=== PATIENT | female | born 1985 | race Caucasian/White ===

== ENCOUNTER 2020-04-16 10:27 | Emergency (ER) | payer OTHER ==
[~2020-04-16] VITALS: Ht 162.6 cm; Wt 88.5 kg
[2020-04-16] MEDS ORDERED: WELLBUTRIN SR150 MG PO (11:17)
[2020-04-16] MEDS ORDERED: SPRINTEC1 EACH PO (11:18)
[2020-04-16] MEDS ORDERED: LORAZEPAM 1 MG T1 MG PO (11:19)
[2020-04-16] MEDS ORDERED: NORCO 10-325 T1 EACH PO (11:20)
[2020-04-16] MEDS ORDERED: PROZAC10 M1 PO (11:20)
[2020-04-16] MEDS ORDERED: PREDNISONE 5 MG5 M1 PO (11:20)
[2020-04-16] MEDS ORDERED: PREDNISONE 10 M10 MG PO (12:27)
[2020-04-16] MEDS ORDERED: NORFLEX100 MG PO ×2 (12:27→12:33)
[2020-04-16 12:49] VITALS: BP 133/96
== END 2020-04-16 12:49 | disposition home or self-care (01) ==
LOC: ER 10:27
DX: M54.42 Lumbago with sciatica, left side (principal); F17.210 Nicotine dependence, cigarettes, uncomplicated; Z79.899 Other long term (current) drug therapy

== ENCOUNTER → 2020-05-30 | Outpatient (CLI) | payer OTHER ==
[~2020-05-30] VITALS: Ht 162.6 cm; Wt 88.5 kg
[~2020-05-30] MED LIST: ATIVAN1 M1 PO; LORAZEPAM 1 MG T1 MG PO; NEURONTIN300 MG PO; NORCO 10-325 T1 EACH PO; NORFLEX100 MG PO; PREDNISONE 10 M10 MG PO; PREDNISONE 5 MG5 M1 PO; PROZAC10 M1 PO; SPRINTEC1 EACH PO; WELLBUTRIN SR150 MG PO
[2020-05-30 13:21] VITALS: BP 115/79
--- NOTE | 2020-05-30 14:34 | NUR ---
Pain Clinic Assessment: 1. History of Osteoarthritis: Not Applicable History of Rheumatoid Arthritis: Not Applicable 2. Height: 5 ft. 4 in. 162.6 cm. Weight: 195.0 lb. oz. 88.452 kg. Patient's BMI: 33.5 3. Vital Signs: BP: 115/79 Pulse: 94 Resp: 16 Temp: 02 Sat: 97 ECG Mon: 4. Pain Intensity: 7 5. Fall Risk: Dizziness: N Needs help standing or walking: N Fallen in the last 3 months: N Fall risk comments: 6. Patient on Blood Thinner: None 7. History of Hypertension: N 8. Opioid Therapy greater than 6 weeks: Y Opiate Contract Signed: 9. Risk Assessment Tool Provided: 2-MOD 10. Functional Assessment Tool: 60/70 11. Recreational Drug Use: Never Drug Type: Tobacco Use: Never Smoker Tobacco Type: Amount or Packs/day: How Many Years: Alcohol Use: Yes Frequency: Weekly Quant: 2
--- NOTE | 2020-05-31 14:21 | HPC ---
[facility] [place] [address] PAIN MANAGEMENT CONSULTATION Name: MARY CONNER Room #: REG Eduard Arjun#: [id number] Admission: 05/30/20 Attend Phys: Xu Lyn DO Discharge: Date of : 89 Report #: [id number] THIS REPORT FOR: cc: FAM - Family physician unknown FAM - Family physician unknown Xu Lyn DO ~ DATE OF SERVICE: 05/30/2020 REFERRING PHYSICIAN: Moshe Garcia MD CHIEF COMPLAINT: Low back pain, left lower extremity pain with paresthesias. HISTORY OF PRESENT ILLNESS: As you know, the patient is a very pleasant 34-year-old female who reports acute onset of low back pain, left lower extremity pain and paresthesias that began 03/20/2020. The patient reports she has had a history of low back pain in the past due to some mild facet arthropathy. She has undergone epidural injections under fluoroscopic guidance with another pain physician with no efficacy. The patient states that she has been able to "just deal with her symptoms" over the past couple of years since that injection series. She states she was in her normal state of health in February when she began to experience low back pain, left lower extremity pain that radiates all the way to the foot. She has trialled conservative treatment options. This was ineffective at controlling symptoms. She was subsequently then seen by Neurosurgery, Dr. Moshe Garcia and advised to trial epidural injections under fluoroscopic guidance for initial treatment. There were changes noted at the L5-S1 level consistent with her symptoms and surgical options were discussed, though at that time imaging had not been completed. She was referred to our clinic to discuss treatment options for lumbar radiculopathy. The patient reports that she also had to be seen in the Emergency Department on 04/16/2020 due to increasing left low back pain, left lower extremity pain. She was diagnosed with "sciatica." She was given medication treatment and sent home. She has been referred to our clinic to discuss epidural injections under fluoroscopic guidance to address lumbar radiculopathy. The patient indicates today pain is continuous and constant. She describes the pain as burning, aching, gnawing, throbbing, sharp, stabbing, numbness and tingling. Places current pain score 7/10, daily average of 6-7/10, worst pain has been as 9/10. The patient states that sitting and standing for any prolonged period of time exacerbates symptoms, ice packs and pain medications tend to improve pain. She has been referred to our service to discuss treatment options for lumbar radiculopathy. PAST MEDICAL HISTORY: 1. [place] [address] PAIN MANAGEMENT CONSULTATION Name: MARY CONNER Room #: REG TRENT Díaz#: [id number] Admission: 05/30/20 Attend Phys: Xu Lyn DO Discharge: Date of : 89 Report #: [id number] 2. Sleep disturbance. 3. Anxiety disorder. 4. Migraines. 5. Depression. PAST SURGICAL HISTORY: section. SOCIAL HISTORY: The patient is a reformed smoker. Denies IV or illicit drug use. Admits to occasional alcohol beverage. She is currently employed as a humanities teacher. She is working, not receiving workmen's compensation nor is she trying to obtain discrete benefits. She is not in litigation in regards to her pain. She is unaccompanied at today's visit. REVIEW OF SYSTEMS: Positive for weight gain, depression, anxiety, insomnia, migraine headaches, chronic low back pain, new onset lumbar radiculopathy. All other review of systems negative per 12-point review of systems other than those listed in history of present illness. Pain impact score 60/70 indicating near complete interference of daily activities secondary to pain. ALLERGIES: No reported drug allergies. CURRENT MEDICATIONS: Sprintec 1 tab per day, gabapentin 300 mg p.o. at bedtime, hydrocodone/acetaminophen 10/325 one tab every 4 hours p.r.n. for pain, Prozac 10 mg once a day, lorazepam 1 mg p.o. at bedtime, bupropion 150 mg once a day. IMAGING: MRI of the lumbar spine obtained 05/18/2020 shows L1-L2 unremarkable, L2-L3 unremarkable, L3-L4 unremarkable, L4-L5 unremarkable. L5-S1, there is a lateral recess stenosis secondary to a posterior disk protrusion eccentric to the left. There is mild bilateral neural foraminal stenosis. PHYSICAL EXAMINATION: VITAL SIGNS: Blood pressure 115/79, pulse 94, respiratory rate 16 and unlabored. The patient is 97% on room air. Height 5 feet 4 inches tall, weight 195 pounds, BMI calculated 33.5. GENERAL: Well-developed, well-nourished, well-hydrated exogenously obese 34-year-old female appearing stated age, pain is rated today at 7/10. HEENT: Normocephalic, atraumatic. Pupils equal, round and reactive. NEUROLOGIC: Speech fluent. The patient deemed a good historian. LUNGS: Clear, no wheeze, rhonchi or rales. CARDIOVASCULAR: Regular. No appreciable gallop, no rub. ABDOMEN: Soft, mildly obese, normoactive bowel sounds. EXTREMITIES: Show no clubbing, no cyanosis, no edema. MUSCULOSKELETAL: Lower extremity strength appears equal and symmetrical 5/5. Muscle bulk and tone equal and symmetrical in comparing left lower extremity to [facility] [address] [place] [address] PAIN MANAGEMENT CONSULTATION Name: MARY CONNER Room #: REG TRENT Farmer.#: [id number] Admission: 05/30/20 Attend Phys: Xu Lyn DO Discharge: Date of : 89 Report #: [id number] right. Seated straight leg raising positive left. Supine straight leg raising positive left. Rick's test is negative. Modified Gaenslen's positive for axial low back pain. Ankle clonus negative. Babinski is negative. Gait appears mildly antalgic favoring left lower extremity over right. Ankle clonus negative. Babinski is negative. Lumbar provocation testing is met with slight increase in pain secondary to mild arthritic changes. ASSESSMENT: 1. Symptomatic lumbar radiculopathy. 2. Lateral recess stenosis. 3. Displacement of lumbar intervertebral disk with radiculopathy. 4. Lumbar facet arthropathy. 5. Chronic intractable pain. PLAN: 1. The patient has been referred to our service by her neurosurgeon for evaluation for lumbar radiculopathy. Based on today's physical exam and the history she provides, the description she uses in regards to pain as well as the distribution of symptoms, it would appear she is suffering from lumbar radiculopathy secondary to the findings noted in her MRI. As you are aware, MRI showed changes at the L5-S1 level with lateral recess stenosis, which does correlate to the patient's symptoms. She also has some mild arthritic changes noted in the lumbar spine, the likely source of her axial back pain for the past couple of years. We discussed with the patient the treatment options for lumbar radiculopathy to address new onset of low back and left lower extremity symptoms. The following was discussed with the patient today. We discussed physical therapy, stretching exercises, core strengthening and a concerted effort at weight loss. We discussed medication management, adding neuropathic pain medications such as amitriptyline, nortriptyline, Cymbalta, Lyrica or gabapentin. We would also recommend addition of a nonsteroidal anti-inflammatory with that therapy. We discussed the epidural injections for which the patient was referred to our clinic. We also discussed spinal cord stimulator and ultimately surgical options. After reviewing the risks and benefits of all the proposed treatment options, the patient chose to begin with a lumbar epidural injection under fluoroscopic guidance. 2. The patient was advised we will need to obtain authorization before she could undergo a lumbar epidural injection. We will begin this authorization process immediately. We are hopeful we can provide the epidural injection to the patient tomorrow. We will be working on that authorization today and will have a tentative appointment for the patient on 05/31/2020 at 12:30 to undergo the procedure. 3. No medication changes made at today's visit. We recommend the patient to continue current medical therapy as previously prescribed. 4. We will see the patient back in followup visit once we have achieved authorization to undergo the first in a series of requested lumbar epidural [address] [address] PAIN MANAGEMENT CONSULTATION Name: MARY CONNER Room #: REG CLEduard Díaz#: [id number] Admission: 05/30/20 Attend Phys: Xu Lyn DO Discharge: Date of : 89 Report #: [id number] injections. 5. We wish to thank Dr. Moshe Garcia for the referral of this patient to our clinic. We will keep you apprised of response to treatment as we address her lumbar radicular symptoms involving the low back and left lower extremity secondary to the findings at the L5-S1 level. Again, we wish to thank you for the opportunity to see this patient in consultation. <ELECTRONICALLY SIGNED> By: Xu Lyn DO 05/31/20 1421 0921 [id number] Xu Lyn DO /nt
== END ==
LOC: PAIN 06:54
PROVIDERS: ATTEND Anesthesiology Pain Medicine
DX: M51.16 Intervertebral disc disorders with radiculopathy, lumbar region (principal); M79.604 Pain in right leg; M79.605 Pain in left leg; R20.2 Paresthesia of skin; M47.26 Other spondylosis with radiculopathy, lumbar region; G89.29 Other chronic pain; M48.07 Spinal stenosis, lumbosacral region; F41.8 Other specified anxiety disorders; Z79.899 Other long term (current) drug therapy

== ENCOUNTER → 2020-05-31 | Outpatient (CLI) | payer OTHER ==
[~2020-05-31] VITALS: Ht 167.6 cm; Wt 89.2 kg
--- NOTE | ~2020-05-31 | HPC ---
[facility] [place] [address] PAIN MANAGEMENT CONSULTATION Name: MARY CONNER Room #: REG [facility] [id number] Admission: 05/31/20 Attend Phys: Xu Lyn DO Discharge: Date of : 89 Report #: [id number] THIS REPORT FOR: cc: [facility] - Family physician unknown FAM - Family physician unknown Xu Lyn DO ~ CC: [facility] unknown Xu Garcia MD DATE OF SERVICE: 05/31/2020 REFERRING PHYSICIAN: Moshe Garcia MD CHIEF COMPLAINT: Low back pain, left lower extremity pain and paresthesias. HISTORY OF PRESENT ILLNESS: As you know, the patient is a very pleasant 34-year-old female who was seen in consultation per the request of her neurosurgeon, Dr. Moshe Garcia yesterday, 05/30/2020. The patient was diagnosed with lumbar radiculopathy secondary to the displacement of lumbar intervertebral disk. She was established today's appointment to undergo the first in a series of lumbar epidural injections to address this lumbar radiculopathy. The patient required authorization prior to undergoing the procedure. We were able to obtain this authorization overnight and the patient has returned today to undergo her first in a series of injections. The patient denies any changes in medical history over the past 24 hours. She has no new injury or trauma. She returns today in followup visit with pain score of around 6-7/10 requesting first in a series of lumbar epidural injections to address lumbar radiculopathy. ALLERGIES: No known drug allergies. CURRENT MEDICATIONS: Sprintec, gabapentin, hydrocodone, Prozac, lorazepam, and bupropion. SOCIAL HISTORY: The patient denies current tobacco use. She is a reformed smoker. Denies IV or illicit drug use. Admits occasional alcohol beverage. She is employed as a human resource manager working, not receiving workmen's compensation, unaccompanied today. IMAGING: No new imaging available. PHYSICAL EXAMINATION: GENERAL: Well-developed, well-nourished, well-hydrated 34-year-old female, appears her stated age. She is in no acute distress, awake, alert and oriented x 3. Current pain score anywhere from 6-7/10. [address] [address] PAIN MANAGEMENT CONSULTATION Name: MARY CONNER Room #: REG [facility]#: [id number] Admission: 05/31/20 Attend Phys: Xu Lyn DO Discharge: Date of : 89 Report #: [id number] HEENT: Normocephalic, atraumatic. Pupils equal, round and reactive. Speech fluent. EXTREMITIES: Show no clubbing, no cyanosis, and no edema. MUSCULOSKELETAL: Lower extremity strength remains symmetrical again today 5/5. Seated straight leg raising positive on the left. Supine straight leg raising positive on the left. Gait is antalgic favoring left lower extremity over right. ASSESSMENT: 1. Symptomatic lumbar radiculopathy. 2. Lateral recess stenosis of lumbar spine. 3. Displacement of lumbar intervertebral disk with radiculopathy. 4. Lumbar facet arthropathy. 5. Chronic intractable pain. PLAN: 1. The patient returns today in followup visit to undergo the first in the series of lumbar epidural injections under fluoroscopic guidance. The patient has received authorization to undergo the procedure. She reports pain is unchanged from yesterday's appointment. She has had epidural injections as indicated in our initial evaluation in the past to address axial back pain, which provided only pertinent transient improvement in symptoms. She was referred to our clinic by her neurosurgeon to trial epidural injections to address the findings at the L5-S1 level, which shows a disk bulge and lateral recess stenosis affecting the S1 nerve root on the left. The patient has been advised risks and benefits of a lumbar epidural injection. These risks include but are not necessarily limited to bleeding, bruising, infection, worsening pain, no relief of pain, also risk of temporary or permanent muscle weakness, temporary or permanent nerve damage, possible paralysis and . The patient states understood and wished to proceed. 2. No medication changes made at today's visit. The patient will continue current medical therapy as previously prescribed. 3. We will see the patient back in followup visit on an as needed basis for the possible next in the series of epidural injections. We have made the patient a tentative appointment for 31 days to review efficacy. PROCEDURE NOTE. DESCRIPTION OF PROCEDURE: L5-S1 left paramedian epidural steroid injection under fluoroscopic guidance. This is the first procedure of the first series that the patient is undergoing. After obtaining written consent, the patient was taken back to the fluoroscopy suite, placed in a prone position with pillow under the abdomen to decrease lumbar lordosis. The skin overlying the lumbosacral area was then prepped and [address] [address] PAIN MANAGEMENT CONSULTATION Name: MARY CONNER Room #: REG TRENT Díaz#: [id number] Admission: 05/31/20 Attend Phys: Xu Lyn DO Discharge: Date of : 89 Report #: [id number] draped in aseptic fashion. The L5-S1 vertebral interspace was then identified by AP fluoroscopy. The skin and subcutaneous tissue overlying the target site of injection was anesthetized with 3 mL 1% lidocaine. A 20-guage 3.5 inch Tuohy needle was then advanced under fluoroscopic guidance towards the epidural space using a left paramedian approach. The epidural space was identified using loss of resistance to air technique. After negative aspiration for heme or cerebrospinal fluid, a total of 1 mL of Omnipaque was injected. A lumbar epidurogram was confirmed using both AP and lateral fluoroscopy. After negative aspiration for heme or cerebrospinal fluid, 5 mL of a solution containing 2 mL 40 mg per mL, 80 mg total triamcinolone along with 3 mL lidocaine 1% was injected in increments. Contrast spread was noted in the post epidural space. The needle was then retracted approximately half way and needle tract flushed with 1 mL of 1% lidocaine. Needle was then removed. There were no apparent sensory or motor deficits in the lower extremity following the procedure. A sterile bandage was placed over the injection site. The heart rate, pulse, oximetry and blood pressure were continuously monitored after the procedure. There were no apparent complications. The patient tolerated the procedure well and was carefully escorted to the recovery room in stable condition. There were no apparent complications. After meeting discharge criteria, the patient was then discharged home. By: 1321 07 Xu Lyn DO /nt
[2020-05-31 12:47] VITALS: BP 145/96
--- NOTE | 2020-05-31 12:49 | NUR ---
Pain Clinic Assessment: 1. History of Osteoarthritis: LUMBAR SPINE History of Rheumatoid Arthritis: Not Applicable 2. Height: 5 ft. 6 in. 167.6 cm. Weight: 196.6 lb. oz. 89.177 kg. Patient's BMI: 31.7 3. Vital Signs: BP: 145/96 Pulse: 89 Resp: 18 Temp: 02 Sat: 95 ECG Mon: 4. Pain Intensity: 6 5. Fall Risk: Dizziness: N Needs help standing or walking: N Fallen in the last 3 months: N Fall risk comments: 6. Patient on Blood Thinner: None 7. History of Hypertension: N 8. Opioid Therapy greater than 6 weeks: Y Opiate Contract Signed: 9. Risk Assessment Tool Provided: 2-MOD 10. Functional Assessment Tool: 60/ 11. Recreational Drug Use: Never Drug Type: Tobacco Use: Never Smoker Tobacco Type: Amount or Packs/day: How Many Years: Alcohol Use: Yes Frequency: Weekly Quant: 1-2 BEERS
== END ==
LOC: PAIN 06:54
PROVIDERS: ATTEND Anesthesiology Pain Medicine
DX: M54.5 Low back pain (principal); M51.16 Intervertebral disc disorders with radiculopathy, lumbar region; G89.29 Other chronic pain; Z79.899 Other long term (current) drug therapy

== ENCOUNTER → 2020-07-04 | Outpatient (CLI) | payer OTHER ==
[~2020-07-04] VITALS: Ht 162.6 cm; Wt 86.6 kg
[2020-07-04 09:16] VITALS: BP 143/93
--- NOTE | 2020-07-04 09:18 | NUR ---
Pain Clinic Assessment: 1. History of Osteoarthritis: LUMBAR SPINE History of Rheumatoid Arthritis: Not Applicable 2. Height: 5 ft. 4 in. 162.6 cm. Weight: 191.0 lb. oz. 86.637 kg. Patient's BMI: 32.8 3. Vital Signs: BP: 143/93 Pulse: 89 Resp: 16 Temp: 02 Sat: 98 ECG Mon: 4. Pain Intensity: 7 5. Fall Risk: Dizziness: N Needs help standing or walking: N Fallen in the last 3 months: N Fall risk comments: 6. Patient on Blood Thinner: None 7. History of Hypertension: N 8. Opioid Therapy greater than 6 weeks: Y Opiate Contract Signed: 9. Risk Assessment Tool Provided: 2-MOD 10. Functional Assessment Tool: 60/70 11. Recreational Drug Use: Never Drug Type: Tobacco Use: Never Smoker Tobacco Type: Amount or Packs/day: How Many Years: Alcohol Use: Yes Frequency: Quant:
--- NOTE | 2020-07-04 12:53 | HPC ---
[facility] [place] [address] PAIN MANAGEMENT CONSULTATION Name: MARY CONNER Room #: REG TRENT Farmer.#: [id number] Admission: 07/04/20 Attend Phys: Xu Lyn DO Discharge: Date of : 89 Report #: [id number] THIS REPORT FOR: cc: Kahlil Craig MD, John R. MD Johnson, James E. DO ~ DATE OF SERVICE: 07/04/2020 REFERRING PHYSICIAN: Moshe Garcia MD CHIEF COMPLAINT: Low back pain, left lower extremity pain with paresthesias. HISTORY OF PRESENT ILLNESS: As you know, the patient is a very pleasant 34-year-old female who has returned today in followup visit noticing with the previous epidural injection, pain improvement of about 80-90%. Unfortunately, her symptoms began to return after beginning an exercise program about a week and a half ago. She returns today in followup visit with pain score rated now at about 7/10. She is requesting next in the series of epidural injections to address recurrent lumbar radicular symptoms involving low back and left lower extremity. ALLERGIES: No known drug allergies. CURRENT MEDICATIONS: Sprintec, gabapentin, hydrocodone, Prozac, lorazepam, and bupropion. SOCIAL HISTORY: The patient denies current use of tobacco. She is a reformed smoker. Denies IV or illicit drug use. Admits to occasional alcohol beverage. She is working, not receiving workmen's compensation, unaccompanied today. IMAGING: No new imaging available. PHYSICAL EXAMINATION: VITAL SIGNS: Blood pressure 143/93, pulse 89, respiratory rate 16 and unlabored. The patient is 98% on room air. Height 5 feet 4 inches tall, weight 191 pounds, BMI calculated 32.8. GENERAL: Well-developed, well-nourished, well-hydrated 34-year-old female appearing her stated age, pain is rated today at about 7/10. HEENT: Normocephalic, atraumatic. Pupils equal, round and reactive. Speech fluent. EXTREMITIES: Show no clubbing, no cyanosis. No appreciable edema. MUSCULOSKELETAL: Seated straight leg raising is positive on the left. Supine straight leg raising positive on the left. Rick's test is negative. Gait is improved, but remains slightly antalgic. Muscle bulk and tone equal and symmetrical [place] [address] PAIN MANAGEMENT CONSULTATION Name: MARY CONNER [id number] Admission: 07/04/20 Attend Phys: Xu Lyn DO Discharge: Date of : 89 Report #: [id number] ASSESSMENT: 1. Symptomatic lumbar radiculopathy. 2. Lateral recess stenosis of the lumbar spine. 3. Displacement of lumbar intervertebral disk with radiculopathy. 4. Facet arthropathy of the lumbar spine. 5. Chronic intractable pain. PLAN: 1. The patient returns today in followup visit requesting to undergo lumbar epidural injection under fluoroscopic guidance to address her recurrent lumbar radicular pain. She reports about an 80-90% improvement in overall pain with previous epidural injection, but unfortunately her symptoms have begun to return. She denies injury or trauma. She believes that increase in activity such as an exercise program she has started with her family may have exacerbated symptoms. She returns today in followup visit requesting next in the series of epidural injections. The patient has been advised risks and benefits of a repeat epidural injection. These risks include but are not necessarily limited to bleeding, bruising, infection, worsening pain, no relief of pain, also risk of temporary or permanent muscle weakness, temporary or permanent nerve damage, possible paralysis and . The patient states understood and wished to proceed. 2. No medication changes made at today's visit. The patient will continue current medical therapy as prior prescribed. 3. We will see the patient back in followup visit on an as needed basis for the third in the series of lumbar epidural injections. We are hopeful the patient will see good and prolonged benefit with today's procedure. PROCEDURE NOTE PROCEDURE: L5-S1 right paramedian epidural steroid injection under fluoroscopic guidance. DESCRIPTION OF PROCEDURE: This is the second procedure of the first series that the patient is undergoing. After obtaining written consent, the patient was taken back to the fluoroscopy suite, placed in a prone position with pillow under the abdomen to decrease lumbar lordosis. The skin overlying the lumbosacral area was then prepped and draped in aseptic fashion. The L5-S1 vertebral interspace was then identified by AP fluoroscopy. The skin and subcutaneous tissue overlying the target site of injection was anesthetized with 3 mL 1% lidocaine. A 20-gauge 3-1/2 inch Tuohy needle was then advanced under fluoroscopic guidance towards the epidural space using a left paramedian approach. The epidural space [address] [address] PAIN MANAGEMENT CONSULTATION Name: MARY CONNER Room #: [facility] TRENT Díaz#: [id number] Admission: 07/04/20 Attend Phys: Xu Lyn DO Discharge: Date of : 89 Report #: [id number] was identified using loss of resistance to air technique. After negative aspiration for heme or cerebrospinal fluid, a total of 1 mL of Omnipaque was injected. A lumbar epidurogram was confirmed using both AP and lateral fluoroscopy. After negative aspiration for heme or cerebrospinal fluid, 5 mL of a solution containing 2 mL 40 mg per mL, 80 mg total triamcinolone along with 3 mL of lidocaine 1% was injected in increments. Contrast spread was noted posterior epidural space. The needle was then retracted approximately half way and needle tract flushed with 1 mL of 1% lidocaine. Needle was then removed. There were no apparent sensory or motor deficits in the lower extremity following the procedure. A sterile bandage was placed over the injection site. The heart rate, pulse, oximetry and blood pressure were continuously monitored after the procedure. There were no apparent complications. The patient tolerated the procedure well and was carefully escorted to the recovery room in stable condition. There were no apparent complications. After meeting discharge criteria, the patient was then discharged home. <ELECTRONICALLY SIGNED> By: Xu Lyn DO 07/04/20 [id number] Xu Lyn DO /nt
== END | disposition home or self-care (01) ==
LOC: PAIN 06:46
PROVIDERS: ATTEND Anesthesiology Pain Medicine
DX: M51.16 Intervertebral disc disorders with radiculopathy, lumbar region (principal); M47.26 Other spondylosis with radiculopathy, lumbar region; G89.29 Other chronic pain; Z98.890 Other specified postprocedural states; Z79.899 Other long term (current) drug therapy; Z79.891 Long term (current) use of opiate analgesic